=== PATIENT | female | born 1955 | race Hispanic/Latino ===

== ENCOUNTER 2023-06-18 08:30 | Observation (INO) | payer BC, MEDICARE ==
[2023-06-18 10:52] VITALS: BMI 23.2
[2023-06-18] MEDS ORDERED: Nitroglycerin 0.4 MG TAB (25 Tab Bottle) SL PRN (11:16)
[2023-06-18] MEDS ORDERED: Ondansetron ODT 4 MG TAB PO PRN (11:18)
[2023-06-18] MEDS ORDERED: Calcium Carbonate 500 MG ChewTAB PO PRN (11:18)
[2023-06-18] MEDS ORDERED: Ondansetron PF 4 MG/2 ML Vial IVP PRN (11:18)
[2023-06-18] MEDS ORDERED: Atenolol 25 MG TAB PO SCH (12:00)
[2023-06-18 12:03] LABS: Troponin I 0.012 ng/mL (< 0.028)
[2023-06-18] MEDS: Acetaminophen 325 MG TAB PO PRN ×2 (12:32→21:32)
[2023-06-18] MEDS ORDERED: DULoxetine 60 MG CAP PO SCH (13:00)
[2023-06-18] MEDS ORDERED: DULoxetine 30 MG CAP PO SCH (13:00)
[2023-06-18] MEDS ORDERED: Atorvastatin Calcium 10 MG TAB PO SCH (21:00)
[2023-06-18] MEDS ORDERED: QUEtiapine 25 MG TAB PO SCH (21:00)
[2023-06-18] MEDS: Famotidine 20 MG TAB PO SCH (21:29)
[2023-06-19 08:30] VITALS: TEMP 98
[2023-06-19] MEDS ORDERED: Aspirin 325 MG TAB PO SCH (09:00)
[2023-06-19] MEDS ORDERED: Aspirin 81 mg Enteric Coated Tablet PO SCH (09:00)
[2023-06-19] MEDS ORDERED: Enoxaparin 40 MG (0.4 mL) SYRINGE SC SCH (09:00)
[2023-06-19] MEDS ORDERED: Atenolol 50 MG TAB PO SCH (09:00)
[2023-06-19] MEDS ORDERED: DULoxetine 30 MG CAP PO SCH (09:00)
[2023-06-19] MEDS: Famotidine 20 MG TAB PO SCH (09:41)
[2023-06-19 11:53] VITALS: BP 134/68
== END 2023-06-19 15:09 | disposition home or self-care (01) ==
LOC: CSHTELE 09:22
PROVIDERS: ADMIT Internal Medicine; ATTEND Internal Medicine
PROC: B24BZZZ Ultrasonography of Heart with Aorta (ICD-10-PCS; principal; 2023-06-19)
DX: R07.9 Chest pain, unspecified (principal); I12.9 Hypertensive chronic kidney disease with stage 1 through stage 4 chronic kidney disease, or unspecified chronic kidney disease; E78.5 Hyperlipidemia, unspecified; F41.9 Anxiety disorder, unspecified; F32.A Depression, unspecified; N18.2 Chronic kidney disease, stage 2 (mild); F10.90 Alcohol use, unspecified, uncomplicated; R55 Syncope and collapse; Z79.899 Other long term (current) drug therapy; Z98.890 Other specified postprocedural states
CPT/HCPCS: 36415; 93306; 93880; 94760; G0378